=== PATIENT | male | born 1985 | race Caucasian/White ===

== ENCOUNTER 2022-01-18 23:00 | Emergency (ER) | payer SELFPAY ==
[~2022-01-18] VITALS: Ht 179 cm; Wt 90.7 kg
[2022-01-19] MEDS ORDERED: NS IV 1000 ML 1,000 ML IV STA (01:39)
--- NOTE | 2022-01-19 01:45 | ED General ---
General Chief Complaint: Substance Abuse Stated Complaint: INTOXICATION Source of Information: Patient, EMS Exam Limitations: Intoxication History of Present Illness Date Seen by Provider: Jan 18, 2022 Time Seen by Provider: 23:00 Initial Comments 36-year-old male presenting with complaints of alcohol intoxication. EMS brought him from the scene where he was found sleeping in his vehicle with bottles of alcohol around him in the vehicle. He had a breathalyzer attached to his vehicle to monitor his alcohol level and prevent him from driving while intoxicated. Law enforcement contacted EMS who transferred him here to [facility] due to his alcohol intoxication. Patient had no complaints himself. Law enforcement did not come with him and there is no family available. When asked patient where he was at he would repeatedly answer that he is in [place]. Associated Systoms: No Chest Pain, No Cough, No Nausea/Vomiting, No Shortness of Air Allergies and Home Medications Allergies Coded Allergies: No Known Drug Allergies (Unverified , 01/19/22) Patient Home Medication List Home Medication List Reviewed: Yes Review of Systems Review of Systems Constitutional: no symptoms reported EENTM: no symptoms reported Respiratory: no symptoms reported Cardiovascular: no symptoms reported Gastrointestinal: no symptoms reported Genitourinary: no symptoms reported Musculoskeletal: no symptoms reported Skin: No rash Psychiatric/Neurological: See HPI Past Jaddecw-Nifybi-Vvltns Hx Patient Social History Alcohol Use?: Yes Alcohol type: Beer, Hard Liquor Alcohol Frequency: Daily Immunizations Up To Date First/Initial COVID19 Vaccinat: n/a Second COVID19 Vaccination Indra: n/a Past Medical History Surgery/Hospitalization HX: Chronic Alcoholic Physical Exam Vital Signs Vital Signs - First Documented 01/18/22 23:00 Temp 36.9 Pulse 115 Resp 16 B/P (MAP) 130/89 (103) Pulse Ox 98 O2 Delivery Room Air Capillary Refill : Height, Weight, BMI Height: '" Weight: lbs. oz. kg; BMI Method: General Appearance: No Apparent Distress, WD/WN, Other (appears intoxicated) HEENT: PERRL/EOMI, Pharynx Normal Neck: Full Range of Motion, Normal Inspection, Non Tender, Supple Respiratory: Chest Non Tender, Lungs Clear, Normal Breath Sounds, No Accessory Muscle Use, No Respiratory Distress Cardiovascular: No No Murmur; Normal Peripheral Pulses, Tachycardia Gastrointestinal: Normal Bowel Sounds, No Pulsatile Mass, Non Tender, Soft Rectal: Deferred Extremity: Normal Capillary Refill, Normal Inspection, No Pedal Edema Neurologic/Psychiatric: No Oriented x3; Other (somnolent but awakens to voice and can answer some questions) Skin: Normal Color, Warm/Dry Progress/Results/Core Measures Suspected Sepsis SIRS Temperature: Pulse: Respiratory Rate: Laboratory Tests 01/18/22 23:15: White Blood Count 7.7 Blood Pressure / Mean: Laboratory Tests 01/18/22 23:15: Creatinine 0.76, Platelet Count 189, Total Bilirubin 0.7 Results/Orders Lab Results Laboratory Tests Test 01/18/22 23:15 Range/Units White Blood Count 7.7 4.3-11.0 10^3/uL Red Blood Count 4.97 4.30-5.52 10^6/uL Hemoglobin 16.0 13.3-17.7 g/dL Hematocrit 46 40-54 % Mean Corpuscular Volume 92 80-99 fL Mean Corpuscular Hemoglobin 32 25-34 pg Mean Corpuscular Hemoglobin Concent 35 32-36 g/dL Red Cell Distribution Width 12.5 10.0-14.5 % Platelet Count 189 130-400 10^3/uL Mean Platelet Volume 9.2 9.0-12.2 fL Immature Granulocyte % (Auto) 0 % Neutrophils (%) (Auto) 56 42-75 % Lymphocytes (%) (Auto) 33 12-44 % Monocytes (%) (Auto) 9 0-12 % Eosinophils (%) (Auto) 1 0-10 % Basophils (%) (Auto) 1 0-10 % Neutrophils # (Auto) 4.3 1.8-7.8 X 10^3 Lymphocytes # (Auto) 2.5 1.0-4.0 X 10^3 Monocytes # (Auto) 0.7 0.0-1.0 X 10^3 Eosinophils # (Auto) 0.1 0.0-0.3 10^3/uL Basophils # (Auto) 0.1 0.0-0.1 10^3/uL Immature Granulocyte # (Auto) 0.0 0.0-0.1 10^3/uL Sodium Level 143 135-145 MMOL/L Potassium Level 4.0 3.6-5.0 MMOL/L Chloride Level 99 98-107 MMOL/L Carbon Dioxide Level 26 21-32 MMOL/L Anion Gap 18 H 5-14 MMOL/L Blood Urea Nitrogen 6 L 7-18 MG/DL Creatinine 0.76 0.60-1.30 MG/DL Estimat Glomerular Filtration Rate 119 BUN/Creatinine Ratio 8 Glucose Level 99 70-105 MG/DL Calcium Level 9.4 8.5-10.1 MG/DL Corrected Calcium 8.5-10.1 MG/DL Total Bilirubin 0.7 0.1-1.0 MG/DL Aspartate Amino Transf (AST/SGOT) 48 H 5-34 U/L Alanine Aminotransferase (ALT/SGPT) 56 H 0-55 U/L Alkaline Phosphatase 109 40-136 U/L Total Protein 8.0 6.4-8.2 GM/DL Albumin 4.8 H 3.2-4.5 GM/DL Lipase 75 8-78 U/L My Orders Orders - SUKI LOWERY MD Ed Iv/Invasive Line Start (01/19/22 01:38) Cbc With Automated Diff (01/19/22 01:38) Comprehensive Metabolic Panel (01/19/22 01:38) Lipase (01/19/22 01:38) Ns Iv 1000 Ml (Sodium Chloride 0.9%) (01/19/22 01:39) O2 (01/19/22 01:39) Vital Signs/I&O 01/18/22 01/19/22 01/19/22 23:00 06:24 07:11 Temp 36.9 36.9 Pulse 115 128 128 Resp 16 16 16 B/P (MAP) 130/89 (103) 145/79 (101) 145/79 Pulse Ox 98 95 95 O2 Delivery Room Air Room Air Room Air Capillary Refill : Progress Note #1: Progress Note Obtain basic labs and administer 1 L normal saline IV fluid bolus for hydration. Placed on supplemental oxygen for decreased oxygen saturation when he sleeps. Try to contact family to see if there is anyone to come pick him up. Progress Note #2: Progress Note CBC and chemistry are stable without acute significant abnormality. He does have mild elevation of his AST and ALT to go along with alcoholism. His vital signs are stable and he had approximately 800 mL of normal saline were infused prior to him disconnecting his IV. When checking on the patient at 00 42 he was more alert and answering questions better. He denied having anyone to come pick him up or anyone to call to come to the hospital. He continues to state that he thinks he is in [place]. Will allow him to sleep and rest longer until either his family comes to get him or calls back from having left voicemail on his mother's phone, or he wakes up and is less intoxicated and able to call friends/family to get a ride home. Progress Note #3: Progress Note Patient was awake and drinking water in the ED. Family was contacted again and his Mom said she would not be coming to pick him up. Will discharge to the waiting room so he may use the phone to try calling for a ride. He had told us repeatedly overnight when he was asked if there was anyone to call to come get h im that he did not have anyone and that he wanted to sleep some more. Departure Impression Primary Impression: Acute alcoholic intoxication Qualified Codes: F10.920 - Alcohol use, unspecified with intoxication, uncomplicated Disposition: 01 HOME, SELF-CARE Condition: Stable Departure-Patient Inst. Decision time for Depature: 07:12 [place]: [facility] [place] Instructions: ALCOHOL AND SUBSTANCE ABUSE, Alcohol Intoxication ED Add. Discharge Instructions: Do not drink alcohol to excess. Follow up with your primary care, Shreya Pathak APRN, for further concerns. All discharge instructions reviewed with patient and/or family. Voiced understanding. SUKI LOWERY MD Jan 19, 2022 01:45
[2022-01-19 02:35] LABS: EOSINOPHILS % (AUTO) 1 % (0-10); HEMATOCRIT 46 % (40-54); LYMPHOCYTES % (AUTO) 33 % (12-44); MEAN CORPUSCULAR HEMOGLOBIN 32 pg (25-34); MEAN CORPUSCULAR HGB CONC 35 g/dL (32-36); MEAN CORPUSCULAR VOLUME 92 fL (80-99); MEAN PLATELET VOLUME 9.2 fL (9.0-12.2); NEUTROPHILS % (AUTO) 56 % (42-75); PLATELET COUNT 189 10^3/uL (130-400); WHITE BLOOD COUNT 7.7 10^3/uL (4.3-11.0)
[2022-01-19 02:36] LABS: BASOPHILS # (AUTO) 0.1 10^3/uL (0.0-0.1); BASOPHILS % (AUTO) 1 % (0-10); EOSINOPHILS # (AUTO) 0.1 10^3/uL (0.0-0.3); LYMPHOCYTES # (AUTO) 2.5 X 10^3 (1.0-4.0); MONOCYTES # (AUTO) 0.7 X 10^3 (0.0-1.0); MONOCYTES % (AUTO) 9 % (0-12); NEUTROPHILS # (AUTO) 4.3 X 10^3 (1.8-7.8)
[2022-01-19 02:38] LABS: BUN/CREATININE RATIO 8; CALCIUM 9.4 MG/DL (8.5-10.1); CARBON DIOXIDE 26 MMOL/L (21-32); CHLORIDE 99 MMOL/L (98-107); CREATININE SERUM 0.76 MG/DL (0.60-1.30); GFR ESTIMATED 119; GLUCOSE 99 MG/DL (70-105)
[2022-01-19 02:39] LABS: ALANINE AMINOTRANSFERASE 56 U/L (0-55); ALBUMIN 4.8 GM/DL (3.2-4.5); ALKALINE PHOSPHATASE 109 U/L (40-136); BILIRUBIN,TOTAL 0.7 MG/DL (0.1-1.0); LIPASE 75 U/L (8-78)
[2022-01-19 02:42] LABS: SODIUM 143 MMOL/L (135-145)
[2022-01-19 07:11] VITALS: BP 145/79
== END 2022-01-19 07:20 | disposition home or self-care (01) ==
LOC: ER FS 01-19 01:28
DX: F10.129 Alcohol abuse with intoxication, unspecified (principal); Z28.310 Unvaccinated for COVID-19
CPT/HCPCS: 36415; 80053; 83690; 85025